=== PATIENT | female | born 1945 ===

== ENCOUNTER → 2017-04-28 | Outpatient (CLI) | payer BC | END | disposition home or self-care (01) | LOC: C.RDSM 08:00 | PROVIDERS: ATTEND Orthopaedic Surgery Sports Medicine | DX: R52 Pain, unspecified (principal) ==

== ENCOUNTER → 2018-06-18 | Outpatient (CLI) | payer BC ==
--- NOTE | 2018-06-18 13:56 | MAMMOGRAPHY REPORT ---
BILATERAL DIGITAL DIAGNOSTIC MAMMOGRAM TOMOSYNTHESIS WITH CAD AND TARGETED LEFT ULTRASOUND: 06/18/2018 CLINICAL HISTORY: The patient reports white nipple discharge from her left nipple approximately 2 wee ks ago, which was noted only upon expression. She was placed on an antibiotic cream and has had no fu rther episodes. She denies any bloody nipple discharge, pain, palpable lumps, or associated skin eryt dolores. TECHNIQUE: Breast tomosynthesis in addition to standard 2D mammography was performed. Current study w as also evaluated with a Computer Aided Detection (CAD) system. Bilateral CC and MLO 2D and tomosynt hesis images were obtained. COMPARISON: No prior exams were available for comparison. The patient had prior mammograms in [facility] at least 8 years ago, however, the patient does not know the location of the mammograms. BREAST COMPOSITION: The tissue of both breasts is heterogeneously dense, which may obscure small mass es. FINDINGS: There are no suspicious masses, calcifications, or areas of architectural distortion noted in either breast mammographically. An asymmetry is seen within the left superior breast on the MLO view, which has the appearance of normal fibroglandular tissue although ultrasound was performed. Targeted ultrasound was performed of the left subareolar breast. No intraductal mass or other suspic ious sonographic normality is evident. No focal fluid collection is seen to suggest parenchymal absc ess. Targeted ultrasound was performed of the left superior breast in the region of the mammographic asymmetry, which shows sonographically normal tissue without evidence of a mass or other suspicious sonographic abnormality; the asymmetry is therefore benign and compatible with normal fibroglandular tissue. IMPRESSION: ACR BI-RADS CATEGORY 2: BENIGN, ULTRASOUND ACR BI-RADS CATEGORY 2: BENIGN No suspicious mammographic or sonographic abnormality seen within the left subareolar breast, with no etiology for white left nipple discharge evident. The patient reports that the patient has had no f urther episodes of nipple discharge since using antibiotic cream. There is no mammographic or sonogra phic evidence of malignancy. Recommend clinical follow-up for left nipple discharge, and recommend r outine bilateral screening mammograms in one year. The patient has been verbally notified of the results. Some breast cancers are not detected with mammography. A negative mammographic report should not petrona y biopsy if a clinically suggestive mass is present. Mita Raphael M.D. /:06/18/2018 11:19:17 Board Handler: RT Lucho(Marlon)(M), [facility]; Mita Raphael MD, [facility] letter sent: Normal 10/24 OVERALL STUDY BIRADS: 2 Benign
== END | disposition home or self-care (01) ==
LOC: C.MAMM 10:41
PROVIDERS: ATTEND Nurse Practitioner Family
DX: N64.89 Other specified disorders of breast (principal)